=== PATIENT | female | born 1990 | race Caucasian/White ===

== ENCOUNTER 2017-05-02 05:01 | Emergency (ER) | payer OTHER ==
[~2017-05-02] VITALS: Ht 167.6 cm; Wt 60.0 kg
[2017-05-02 05:07] VITALS: BP 129/79; PULSE 88; RESP 16; TEMP 98; O2SAT 100
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
[2017-05-02 05:56] VITALS: BP 128/66; PULSE 92; RESP 16; TEMP 98.6; O2SAT 100
[2017-05-02 09:21] VITALS: BP 96/46; PULSE 63; RESP 16; O2SAT 100
[2017-05-02 10:46] VITALS: BP 98/55; PULSE 51; RESP 17; O2SAT 98
[2017-05-02 19:34] VITALS: BP 99/57; PULSE 61; RESP 16; TEMP 97.1; O2SAT 100
[2017-05-02 22:15] VITALS: BP 118/51; PULSE 57; RESP 18; O2SAT 97
[2017-05-03 02:00] VITALS: BP 103/76; PULSE 74; TEMP 97.8; O2SAT 98
[2017-05-03 06:00] VITALS: BP 103/63; PULSE 54; RESP 18; O2SAT 99
[2017-05-03 10:10] VITALS: BP 151/58; PULSE 51; RESP 18; O2SAT 100
[2017-05-03 18:43] VITALS: BP 99/51; PULSE 53; RESP 18; O2SAT 100
[2017-05-04 06:21] VITALS: BP 96/53; PULSE 55; RESP 16
[2017-05-04 10:14] VITALS: BP 100/52; PULSE 58; RESP 18; TEMP 98.6; O2SAT 100
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
--- NOTE | 2017-05-04 12:04 | PD ---
Physical Exam Date Seen by Provider: May 04, 2017 Time Seen by Provider: 12:02 Narrative For full history and physical examination please see previous provider's note. Data Data Last Documented VS Vital Signs Date Time Temp Pulse Resp B/P (MAP) Pulse Ox O2 Delivery O2 Flow Rate FiO2 05/04/17 10:14 98.6 58 18 100/52 (68) 100 Room Air Orders Orders Psych Screen (05/02/17 05:39) Diet Regular Basic (05/02/17 Breakfast) Diet Regular Basic (05/02/17 Lunch) Diet Regular Basic (05/02/17 Dinner) Diet Regular Basic (05/03/17 Breakfast) Diet Regular Basic (05/03/17 Lunch) Diet Regular Basic (05/03/17 Dinner) Diet Regular Basic (05/04/17 Breakfast) Ed Discharge Order (05/04/17 12:02) [facility] Medical Record Reviewed: Yes Supervised Visit with VIOLETA: No Narrative Course Patient is a 27-year-old female that was brought to the emergency Department under Pineda act for psychiatric evaluation. She was seen and evaluated in the emergency department, medically cleared. She's been seen and evaluated by the psychiatrist and Sung act was lifted. Please see psychiatrist notes for full documentation. Patient will be discharged at this time. She is encouraged to return for any new or worsening symptoms. Diagnosis Primary Impression: Adjustment disorder with mixed disturbance of emotions and conduct Referrals: [facility] (Out patient) Primary Care Physician Patient Instructions: General Instructions Additional Instruction: Follow-up at [facility] Follow-up with your primary doctor Return to emergency department for any new or worsening symptoms Med/Other Pt SpecificInfo: No Change to Meds Scripts No Active Prescriptions or Reported Meds Disposition: 01 DISCHARGE HOME Condition: Stable Louie,Sima BAILEY May 04, 2017 12:04
== END 2017-05-04 12:20 | disposition home or self-care (01) ==
LOC: NEPJ 05:01
DX: Z02.89 Encounter for other administrative examinations (principal); F43.25 Adjustment disorder with mixed disturbance of emotions and conduct; R07.9 Chest pain, unspecified; F17.200 Nicotine dependence, unspecified, uncomplicated; Z86.59 Personal history of other mental and behavioral disorders
CPT/HCPCS: 99284